=== PATIENT | male | born 1995 | race Caucasian/White ===

== ENCOUNTER 2018-11-05 19:53 | Emergency (ER) | payer OTHER ==
[2018-11-05 20:03] VITALS: BP 108/60
--- NOTE | 2018-11-05 20:47 | XRAY Report ---
Reason: Trauma, swollen, unable to bear weight Procedure Date: 11/05/2018 Accession Number: [id number] / [id number] Procedure: XR - Ankle 3 View RT CPT Code: FULL RESULT: EXAM: RIGHT ANKLE RADIOGRAPHY EXAM DATE: 11/05/2018 08:22 PM. CLINICAL HISTORY: Trauma, swollen, unable to bear weight. COMPARISON: None. TECHNIQUE: 3 views. FINDINGS: Bones: Mildly displaced fragment at the distal tip of the lateral malleolus that measures approximately 8 mm. No other fracture or focal osseous destruction. Joints: Alignment and joint spaces appear maintained. Possible small ankle joint effusion. Soft Tissues: Soft tissue swelling appears most prominent at the lateral aspect of the ankle. IMPRESSION: 1. Mildly displaced fragment at the distal tip of the lateral malleolus measuring approximately 8 mm. Prominent overlying soft tissue swelling. It is possible that this fragment may represent an old injury; however, suspicious given the prominent overlying soft tissue swelling. No other fracture or dislocation. 2. Possible small ankle joint effusion. RADIA
--- NOTE | 2018-11-05 22:04 | ED Physician Documentation ---
PD HPI LOWER EXT INJURY - Stated complaint Stated Complaint: RT FOOT PX - Chief complaint Chief Complaint: Trauma Ext - History obtained from History obtained from: Patient - History of Present Illness PD HPI LOW EXT INJURY LOCATION: Right, Ankle Type of injury: Twist Where injury occurred: Park Timing - onset: Today Timing - details: Abrupt onset, Still present Associated symptoms: Swelling. No: Weakness, Numbness Recently seen: Not recently seen Review of Systems Skin: denies: Abrasion (s), Laceration (s) PD PAST MEDICAL HISTORY - Past Medical History Cardiovascular: None Respiratory: None Endocrine/Autoimmune: None HEENT: None - Past Surgical History Past Surgical History: No - Present Medications Home Medications: Ambulatory Orders Medication Instructions Recorded Confirmed cephALEXin [Cephalexin] 500 mg PO TID #20 capsule 05/28/15 Hydrocodone/Acetaminophen [[place] 1 each PO Q6H PRN #15 tablet 11/05/18 5-325 Tablet] Ibuprofen 600 mg PO TID PRN #25 tablet 11/05/18 - Allergies Allergies/Adverse Reactions: Allergies Allergy/AdvReac Type Severity Reaction Status Date / Time bees AdvReac Unknown Uncoded 05/28/15 11:50 - Social History Does the pt smoke?: No Smoking Status: Never smoker Does the pt drink ETOH?: No Does the pt have substance abuse?: No - Immunizations Immunizations are current?: Yes PD ED PE NORMAL - Vitals Vital signs reviewed: Yes - General General: Alert and oriented X 3, No acute distress, Well developed/nourished - Derm Derm: Normal color, Warm and dry - Neuro Neuro: Other (right ankle tender anterolateral with swelling. No gross laxity wi th stress testing. ) Results - Vitals Vitals: Oxygen O2 Source Room air - Rads (name of study) ankle right Radiology: Prelim report reviewed (no fractures), See rad report Departure - Departure Disposition: 01 Home, Self Care Clinical Impression: Ankle sprain Qualifiers: Encounter type: initial encounter Involved ligament of ankle: unspecified ligament Laterality: right Qualified Code(s): S93.401A - Sprain of unspecified ligament of right ankle, initial encounter Condition: Stable Record reviewed to determine appropriate education?: Yes Instructions: ED Sprain Ankle Follow-Up: Andrew Grace MD [Provider Admit Priv/Credential] - Prescriptions: Hydrocodone/Acetaminophen [[place] 5-325 Tablet] 1 each PO Q6H PRN #15 tablet PRN Reason: Pain Ibuprofen 600 mg PO TID PRN #25 tablet PRN Reason: Pain Comments: Ice elevate and rest the ankle often the next few days to reduce swelling. Use the walking boot orthosis when up and around for the next week or 2 to help support the ligaments. Initially you may want to wear it even when sleeping to support the ankle as well. Crutches as needed for comfort and initial nonweightbearing. Progress weightbearing as able. Ibuprofen 3 times a day. Add Tylenol or hydrocodone if needed for pain. Follow-up with orthopedics in about a week, call tomorrow for an appointment. At that point the swelling should be down and they can reassess the degree of ligament injuries. Forms: Activity restrictions Discharge Date/Time: 11/05/18 22:56
[2018-11-05] MEDS ORDERED: IBUPROFEN 600 MG TABLET PO STA (22:32)
[2018-11-05] MEDS ORDERED: HYDROcod/ACETAM 5/325 MG TABLET PO STA (22:32)
== END 2018-11-05 22:56 | disposition home or self-care (01) ==
LOC: ED 19:53
DX: S93.401A Sprain of unspecified ligament of right ankle, initial encounter (principal); X50.1XXA Overexertion from prolonged static or awkward postures, initial encounter
CPT/HCPCS: 73610; 99283; A9270

== ENCOUNTER 2019-11-13 16:34 | Outpatient (CLI) | payer OTHER ==
--- NOTE | 2019-11-13 16:36 | XRAY Report ---
PROCEDURE: Hand 3 View RT INDICATIONS: RIGHT HAND INJURY TECHNIQUE: 3 views of the hand(s) acquired. COMPARISON: None FINDINGS: Bones: No fractures or dislocations. No suspicious bony lesions. Soft tissues: No suspicious soft tissue calcifications. IMPRESSION: No acute fracture. No osseous lesion. If symptoms and/or clinical suspicion for pathology continue, f urther assessment with repeat plain films, or advanced imaging (e.g., CT, MRI, or bone scan) is recom mended for further assessment. Reviewed by: Nick Aleman MD on 11/13/2019 4:34 PM PDT Approved by: Nick Aleman MD on 11/13/2019 4:34 PM PDT Station ID: [id number]
== END 2019-11-13 23:59 | disposition home or self-care (01) ==
LOC: DI.S 16:34
PROVIDERS: ATTEND Physician Assistant
DX: S67.21XA Crushing injury of right hand, initial encounter (principal)